=== PATIENT | male | born 1965 | race Caucasian/White ===

== ENCOUNTER 2018-06-07 08:01 | Day surgery (SDC) | payer OTHER, SELFPAY ==
--- OUTSIDE RECORDS SUMMARY | 2018-06-07 08:11 | XMS REPORT ---
:1965 Author Organization eClinicalWorks Care Team Providers Name Role Phone Jocy Solis Provider Role Unavailable Allergies, Adverse Reactions, Alerts Substance Reaction Event Type N.K.D.A. Info Not Available Non Drug Allergy Problems Problem Type Condition Code Onset Dates Condition Status Assessment Nasal pain J34.89 Active Assessment History of gallstones Z87.19 Active Assessment History of hepatitis C Z86.19 Active Problem Nasal pain J34.89 Active Problem Right upper quadrant abdominal pain R10.11 Active Problem MRSA infection A49.02 Active Assessment Right upper quadrant abdominal pain R10.11 Active Problem History of hepatitis C Z86.19 Active Problem History of gallstones Z87.19 Active Medications No Known Medications Results Name Result Date Reference Range Unit Abnormality Flag CULTURE, AEROBIC BACTERIA ----CULTURE, SEE NOTE [id number] A AEROBIC BACTERIA HEPATITIS C AB W/REFLEX TO HCV RNA QUANTITATIVE REAL TIME BY PCR ----HEPATITIS C REACTIVE [id number] NON-REACTIVE A ANTIBODY ----SIGNAL TO 24.40 [id number] <1.00 H CUT-OFF COMPREHENSIVE METABOLIC PANEL(CMP) ----ALBUMIN/GLOBULI 1.5 [id number] 1.0-2.5 (calc) N N RATIO ----GLOBULIN 2.9 [id number] 1.9-3.7 g/dL N (calc) ----ALKALINE 75 [id number] 40-115 U/L N PHOSPHATASE ----BILIRUBIN, 0.4 [id number] 0.2-1.2 mg/dL N TOTAL ----CHLORIDE 104 [id number] 98-110 mmol/L N ----ALT 15 [id number] 9-46 U/L N ----POTASSIUM 4.4 [id number] 3.5-5.3 mmol/L N ----AST 16 [id number] 10-35 U/L N ----SODIUM 139 [id number] 135-146 mmol/L N ----BUN/CREATININE NOT APPLICABLE [id number] 6-22 (calc) RATIO ----eGFR 105 [id number] > OR=60 mL/min/1.7 N [facility] 3m2 ----CALCIUM 10.3 20180510 8.6-10.3 mg/dL N ----CARBON DIOXIDE 27 [id number] 20-32 mmol/L N ----ALBUMIN 4.4 [id number] 3.6-5.1 g/dL N ----PROTEIN, TOTAL 7.3 20180510 6.1-8.1 g/dL N ----GLUCOSE 110 20180510 65-99 mg/dL H ----UREA NITROGEN 22 20180510 7-25 mg/dL N (BUN) ----CREATININE 0.95 20180510 0.70-1.33 mg/dL N ----eGFR NON-AFR. 91 20180510 > OR=60 mL/min/1.7 N [place] [address] CULTURE, ANAEROBIC BACTERIA W/GRAM STAIN Summary Purpose eClinicalWorks Submission
--- OUTSIDE RECORDS SUMMARY | 2018-06-07 08:11 | XMS REPORT ---
:1965 Author Organization eClinicalWorks Care Team Providers Name Role Phone Jocy Solis Provider Role Unavailable Allergies No Known Allergies Problems Problem Type Condition Code Onset Dates Condition Status Assessment MRSA infection A49.02 Active Assessment Blood glucose elevated R73.9 Active Problem MRSA infection A49.02 Active Problem Nasal pain J34.89 Active Problem Calculus of gallbladder with chronic K80.10 Active cholecystitis without obstruction Problem Right upper quadrant abdominal pain R10.11 Active Problem History of hepatitis C Z86.19 Active Problem History of gallstones Z87.19 Active Medications Medication Code System Code Instructions Start Date End Date Status Dosage Bactrim DS [facility] 89366417839 800-160 MG Orally May 14, May 24, Active 1 tablet Twice a day 2018 2018 Results No Known Results Summary Purpose eClinicalWorks Submission
--- OUTSIDE RECORDS SUMMARY | 2018-06-07 08:11 | XMS REPORT ---
:1965 Author Organization eClinicalWorks Care Team Providers Name Role Phone Irma Jocy Provider Role Unavailable Allergies No Known Allergies Problems Problem Type Condition Code Onset Dates Condition Status Problem MRSA infection A49.02 Active Problem Nasal pain J34.89 Active Problem Calculus of gallbladder with chronic K80.10 Active cholecystitis without obstruction Problem Right upper quadrant abdominal pain R10.11 Active Problem History of hepatitis C Z86.19 Active Problem History of gallstones Z87.19 Active Medications No Known Medications Results No Known Results Summary Purpose eClinicalWorks Submission
[2018-06-07] MEDS ORDERED: Ringers Lactate 1,000 ML IV ONE ×2 (08:33→10:57)
[2018-06-07] MEDS ORDERED: BUPIVACA 0.25%/EPI 0.0005% MDV 50 ML VIAL ONE (08:39)
[2018-06-07] MEDS ORDERED: CEFOXITIN/SWI 1gm 1 GM/10 ML SYR ONE (09:13)
[2018-06-07] MEDS ORDERED: MIDAZOLAM HCL 2 MG/2 ML INJ ONE (09:18)
[2018-06-07] MEDS ORDERED: LIDOCAINE 1% MPF 2 ML AMPULE ONE (09:21)
[2018-06-07] MEDS ORDERED: NEOSTIGMINE 1 MG/ML -10 ML VIAL ONE (09:21)
[2018-06-07] MEDS ORDERED: PROPOFOL 200 MG/20 ML VIAL IV ONE (09:21)
[2018-06-07] MEDS ORDERED: GLYCOPYRROLATE 0.2 MG/ML SYR ONE (09:21)
[2018-06-07] MEDS ORDERED: ROCURONIUM 50 MG/5 ML VIAL IV ONE (09:21)
[2018-06-07] MEDS ORDERED: FENTANYL CITR 100 MCG/2 ML ONE ×2 (09:21→09:37)
[2018-06-07] MEDS ORDERED: ONDANSETRON 4 MG/2 ML VIAL ONE (09:21)
--- NOTE | 2018-06-07 10:23 | P.OP ---
Preoperative diagnosis: Calculous Cholecystitis Postoperative diagnosis: Calculous Cholecystitis Primary procedure: Laparoscopic Cholecystectomy Anesthesia: GETA + Local Estimated blood loss: <5cc Specimen: Gallbladder Findings: Short cystic duct, impacted gallstone in neck of gallbladder Complications: None Transferred to: Recovery Room Condition: Good
[2018-06-07] MEDS: MEPERIDINE HCL 50 MG/ML AMP ONE ×4 (10:35→11:10)
[2018-06-07] MEDS ORDERED: HYDROCODONE/APAP 5/325 MG TAB ONE (12:48)
--- NOTE | 2018-06-07 21:46 | OP ---
Date of Procedure: 06/07/2018 Surgeon: Terrance Monterroso MD, Preoperative Diagnosis: Calculous cholecystitis. Postoperative Diagnosis: Calculous cholecystitis. Procedure Performed: Laparoscopic cholecystectomy. Anesthesia: General endotracheal plus local with 0.25% Marcaine. Estimated Blood Loss: Less than 5 cc. Specimen: Gallbladder. Findings: 1.Short cystic duct. 2.Impacted stone in the neck of the gallbladder. 3.Thick viscous sludge within the gallbladder. Complications: None. Disposition: Transferred to recovery room in good condition. Procedure In Detail: After informed consent was obtained, the patient brought to the operating room, prepped and draped in the usual sterile fashion. After adequate anesthesia achieved, a supraumbilic al area was anesthetized with 0.25% Marcaine and sharply incised. A 5-mm trocar was introduced in th e abdomen without evidence of complication. Insufflation was obtained to 15 mmHg this time. The are a was inspected. There was no injury to vital structures upon entry to the abdomen. The epigastrium was then inspected and a similar 5 mm trocar was placed in the epigastric region under direct visual ization without evidence of complication. The umbilical trocar was then up-sized to a 12 mm direct v isualization without evidence of complication. Additional trocar chosen in the right upper quadrant. This was similarly anesthetized and a 5-mm trocar was introduced in the abdomen without evidence of complication. Patient was positioned in a gallbladder position, that is head-up right-side up posit ion. Graspers used to grasp the gallbladder. There was found to be significant stone burden on the gallbladder and a stone impacted in the neck of the gallbladder. Careful dissection using [place] r etractor and blunt dissection near the triangle of Calot showed a short cystic duct coming after the confluence of common duct which was visualized. During this, the critical view of safety was obtaine d. After completely dissecting and skeletonizing and seen only 2 structures entering the gallbladder , these identified cystic duct and cystic artery, identifying this critical view of safety. At this time, once again, after this was ensured, titanium clips were placed doubly on the proximal side and singly on the distal side of the cystic duct and cystic artery. These were both ligated using Endo S hears and the gallbladder was then removed from the hepatic fossa with electrocautery. There was min imal spillage of thick viscous bile throughout the procedure. This was captured and suctioned out, h owever, with minimal spillage. After the gallbladder was removed, the hepatic fossa was placed in th e EndoCatch bag, removed the umbilical trocar. The area was then copiously irrigated multiple times until completely clear and the area was inspected. Clips were found to be in good anatomic position. There was no additional hemostatic maneuvers required at the end of the procedure. After inspectin g the hepatic fossa, the area was copiously irrigated again and suctioned dry and inspected for one l ast time. It was found to be in good position. Patient was then positioned in the neutral position. The umbilical trocar was then removed. The umbilical trocar site was closed using a Orestes-Tate n suture passer with 0 Vicryl in interrupted fashion with good approximation of tissues. The abdomen was completely desufflated under direct visualization without evidence of complication. All remaini ng trocars were then removed and all skin incisions copiously irrigated and closed with a 4-0 Monocry l in a running fashion. Dermabond placed over top. Patient tolerated the procedure without evidence of complication, transferred to the PACU in good condition. All counts were correct at the end of t he case. RACHELLE/JACK Voice ID: [id number] Report ID: [id number]
== END 2018-06-07 13:30 | disposition home or self-care (01) ==
LOC: OR 08:01
PROVIDERS: ATTEND Surgery
PROC: 0FT44ZZ Resection of Gallbladder, Percutaneous Endoscopic Approach (ICD-10-PCS; principal; 2018-06-07 09:15)
DX: K80.10 Calculus of gallbladder with chronic cholecystitis without obstruction (principal); Z86.19 Personal history of other infectious and parasitic diseases
CPT/HCPCS: 88304; J2001; J2175; J2250; J2405; J2704; J2710; J3010

== ENCOUNTER 2019-10-28 13:20 | Emergency (ER) | payer OTHER ==
--- OUTSIDE RECORDS SUMMARY | 2019-10-28 15:04 | XMS REPORT ---
:1965 Author Organization eClinicalWorks Care Team Providers Name Role Phone Gerald Sena Provider Role Unavailable Allergies, Adverse Reactions, Alerts Substance Reaction Event Type N.K.D.A. Info Not Available Non Drug Allergy Problems Problem Type Condition Code Onset Dates Condition Statu s Problem Pain in right foot M79.671 Active Problem Pain in left shoulder M25.512 Active Problem Pain in right finger(s) M79.644 Acti ve Problem Insomnia, unspecified type G47.00 A ctive Assessment Fatty liver K76.0 Active Problem Pain of finger of left hand M79.645 Active Assessment Hyperglycemia R73.9 Active Assessment History of hepatitis C Z86.19 Activ e Problem Erectile dysfunction, unspecified N52.9 Active erectile dysfunction type Problem Fatty liver K76.0 Active Problem Pain in right shoulder M25.511 Activ e Problem Depression screening Z13.31 Active Problem Hyperglycemia R73.9 Active Problem History of gallstones Z87.19 Active Assessment Insomnia, unspecified type G47.00 A ctive Assessment Encounter for wellness examination Z00.00 Active in adult Problem Nasal pain J34.89 Active Problem MRSA infection A49.02 Active Assessment Elevated BP without diagnosis of R03.0 Active hypertension Problem History of hepatitis C Z86.19 Activ e Problem Calculus of gallbladder with K80.10 Active chronic cholecystitis without obstruction Assessment Erectile dysfunction, unspecified N52.9 Active erectile dysfunction type Problem Right upper quadrant abdominal pain R10.11 Active Problem Pain of left foot M79.672 Active Medications Medication Code Code Instructions Start End Status Dosage System Date Date Zolpidem Tartrate [facility] 58928263095 10 MG Orally Activ e 1 tablet Once a day PRN at bedtim e INSOMNIA Amitriptyline HCl [facility] 73207246421 10 MG Active TA KE 1 TABLET BY MOUTH AT BEDTIME NEEDED Sildenafil ND 45668153667 50 MG Orally July Active 1 ta blet Citrate Once a day 2019 as needed Results No Known Results Summary Purpose eClinicalWorks Submission
--- OUTSIDE RECORDS SUMMARY | 2019-10-28 15:04 | XMS REPORT | Continuity of Care Document ---
:1965 Author Organization [facility] t Address [address] [place] [address] [address] [place] [address] Care Team Providers Name Role Phone Unavailable Unavailable Unavailable Problems Condition Condition Condition Status Onset Resolution Last Treating Co mments Source Name Details Category Date Date Treatment Clinician Date Nasal pain Nasal pain Problem Active [facility] History of History of Problem Active [facility] gallstones gallstones [facility] History of History of Problem Active [facility] hepatitis hepatitis [facility] - [facility] Right Right Problem Active [facility] upper upper [facility] - quadrant quadrant [facility] abdominal abdominal l pain pain Outpati ent Clinics MRSA MRSA Problem Active [facility] infection infection [facility] Calculus Calculus Problem [facility] - gallbladde gallbladde Me moria r with r with l chronic chronic Outpati cholecysti cholecysti en t tis tis Clinics without without obstructio obstructio n n Pain in Pain in Problem Active [facility] right right [facility] finger(s) finger(s) [facility] Pain of Pain of Problem Active [facility] finger of finger of [facility] - left hand left hand [facility] Pain in Pain in Problem Active [facility] right foot right foot [facility] Pain of Pain of Problem Active [facility] left foot left foot [facility] Depression Depression Problem Active [facility] screening screening [facility] Pain in Pain in Problem Active [facility] left [facility] shoulder shoulder [facility] Pain in Pain in Problem Active [facility] right right [facility] - shoulder shoulder [facility] Hyperglyce Hyperglyce Problem Active [facility] Fatty Fatty Problem Active [facility] liver liver [facility] Insomnia, Insomnia, Diagnosis Active [facility] unspecifie unspecifie [facility] - d type d type [facility] Erectile Erectile Problem Active [facility] t dysfunctio dysfunctio [facility] - n, n, Memoria unspecifie unspecifie l d erectile d erectile Ou tpati dysfunctio dysfunctio en t n type n type Clinics Elevated Elevated Diagnosis Active [facility] BP without BP without [facility] - diagnosis diagnosis Alonzo risa of of l hypertensi hypertensi Ou tpati on on ent Clinics Hyperkalem Hyperkalem Diagnosis Active [facility] ia ia [facility]ics Mixed Mixed Diagnosis Active [facility] hyperlipid hyperlipid [facility] - emia emia [facility] Prediabete Prediabete Diagnosis Active [facility] s s [facility]ics Allergies, Adverse Reactions, Alerts This patient has no known allergies or adverse reactions. Medications Ordered Filled Start Stop Current Ordering Indication Dosage Frequency Signature Comments Components Source Medication Medication Date Date Medication? Clinician (SIG) Name Name Zolpidem Zolpidem Yes Gerald [address] Tartrate Tartrate Sena at bedtime [facility] Sildenafil Sildenafil Yes Gerald [address] [facility] [address] Citrate Citrate Sena as needed Isaac es - (PLEASE Memoria USE l [facility]) [facility] Procedures This patient has no known procedures. Encounters Start End Encounter Admission Attending Care Care Encounter Source Date/Time Date/Time Type Type Clinicians Facility Department ID 2019-10-16 2019-10-16 Outpatient Kylee Roman [id number] [facility] 15[facility]15:00 15:15:00 [facility] 2019-09-19 2019-09-19 Outpatient Kylee Roman [id number] [facility] 09:45:00 09:45:00 [facility] 2019-08-21 2019-08-21 Outpatient Kylee Roman [id number] [facility] 14:09:00 14:09:00 [facility] Medicine Medicine Outpati ent Clinics 2019-08-21 2019-08-21 [facility] [id number] [facility] 11:15:00 11:15:00 [facility] Medicine Outpati ent Clinics 2019-07-30 2019-07-30 [facility] [id number] [facility] 09:30:00 09:30:00 [facility] Medicine Outpati ent Clinics 2019-06-28 2019-06-28 [facility] [id number] 15:00:00 15:00:00 t [facility] [employer] [place] [facility] Medicine Outpati ent Clinics 2018-12-21 2018-12-21 [facility] [id number] 13:40:00 13:40:00 t [facility] Medicine Outpati ent Clinics 2018-06-26 2018-06-26 [facility] [id number] 10:15:00 10:15:00 t Specialty/U [facility] - Specialty rology [facility] /Urology Clinic l Clinic Outpati ent Clinics 2018-05-29 2018-05-29 [facility] [id number] [facility] 09:45:00 09:45:00 t Specialty/U [facility] - Specialty rology Mem[facility] /Urology Clinic l Clinic Outpati ent Clinics 2018-05-25 2018-05-25 [facility] [id number] 15:34:00 15:34:00 t [facility] Medicine Outpati ent Clinics 2018-05-14 2018-05-14 [facility] [id number] 22:12:00 22:12:00 t [facility] Medicine Outpati ent Clinics 2018-05-08 2018-05-08 [facility] [id number] 13:45:00 13:45:00 t [facility] Medicine Outpati ent Clinics Results This patient has no known results.
--- OUTSIDE RECORDS SUMMARY | 2019-10-28 15:04 | XMS REPORT ---
:1965 Author Organization eClinicalWorks Care Team Providers Name Role Phone Gerald Sena Provider Role Unavailable Allergies, Adverse Reactions, Alerts Substance Reaction Event Type N.K.D.A. Info Not Available Non Drug Allergy Problems Problem Type Condition Code Onset Dates Condition Statu s Problem Fatty liver K76.0 Active Problem Pain of left foot M79.672 Active Problem Hyperglycemia R73.9 Active Problem Pain of finger of left hand M79.645 Active Assessment History of hepatitis C Z86.19 Activ e Problem Depression screening Z13.31 Active Problem Insomnia, unspecified type G47.00 A ctive Problem Pain in right finger(s) M79.644 Acti ve Problem Pain in right foot M79.671 Active Problem Pain in right shoulder M25.511 Activ e Problem Pain in left shoulder M25.512 Active Assessment Insomnia, unspecified type G47.00 A ctive Assessment Hyperglycemia R73.9 Active Assessment Fatty liver K76.0 Active Problem Right upper quadrant abdominal pain R10.11 Active Problem Nasal pain J34.89 Active Problem History of gallstones Z87.19 Active Problem MRSA infection A49.02 Active Problem History of hepatitis C Z86.19 Activ e Problem Calculus of gallbladder with K80.10 Active chronic cholecystitis without obstruction Medications Medication Code Code Instructions Start End Status Dosage System Date Date Amitriptyline HCl [facility] 98422112496 10 MG Active TA KE 1 TABLET BY MOUTH AT BEDTIME NEEDED Zolpidem Tartrate ND 06504293396 5 MG Orally June Active 1 tablet Once a day PRN 2019 at bedti me INSOMNIA Results No Known Results Summary Purpose eClinicalWorks Submission
--- OUTSIDE RECORDS SUMMARY | 2019-10-28 15:04 | XMS REPORT ---
:1965 Author Organization eClinicalWorks Care Team Providers Name Role Phone Gerald Sena Provider Role Unavailable Allergies No Known Allergies Problems Problem Type Condition Code Onset Dates Condition Statu s Problem Pain in right foot M79.671 Active Problem Pain in left shoulder M25.512 Active Problem Pain in right finger(s) M79.644 Acti ve Problem Insomnia, unspecified type G47.00 A ctive Problem Pain of finger of left hand M79.645 Active Problem Erectile dysfunction, unspecified N52.9 Active erectile dysfunction type Problem Fatty liver K76.0 Active Problem Pain in right shoulder M25.511 Activ e Problem Depression screening Z13.31 Active Problem Hyperglycemia R73.9 Active Problem History of gallstones Z87.19 Active Assessment Encounter for screening for Z12.11 Active malignant neoplasm of colon Assessment Encounter for screening for Z12.12 Active malignant neoplasm of rectum Problem Nasal pain J34.89 Active Problem MRSA infection A49.02 Active Problem History of hepatitis C Z86.19 Activ e Problem Calculus of gallbladder with K80.10 Active chronic cholecystitis without obstruction Problem Right upper quadrant abdominal pain R10.11 Active Problem Pain of left foot M79.672 Active Medications No Known Medications Results No Known Results Summary Purpose eClinicalWorks Submission
--- OUTSIDE RECORDS SUMMARY | 2019-10-28 15:05 | XMS REPORT ---
:1965 Author Organization eClinicalWorks Care Team Providers Name Role Phone Gerald Sena Provider Role Unavailable Allergies, Adverse Reactions, Alerts Substance Reaction Event Type N.K.D.A. Info Not Available Non Drug Allergy Problems Problem Type Condition Code Onset Dates Condition Statu s Assessment Elevated BP without diagnosis of R03.0 Active hypertension Assessment History of hepatitis C Z86.19 Activ e Problem Pain of left foot M79.672 Active Assessment Hyperkalemia E87.5 Active Problem Pain in right foot M79.671 Active Assessment Erectile dysfunction, unspecified N52.9 Active erectile dysfunction type Problem Pain in right finger(s) M79.644 Acti ve Problem Pain in right shoulder M25.511 Activ e Problem Pain in left shoulder M25.512 Active Problem Erectile dysfunction, unspecified N52.9 Active erectile dysfunction type Problem Insomnia, unspecified type G47.00 A ctive Assessment Mixed hyperlipidemia E78.2 Active Assessment Fatty liver K76.0 Active Problem Mixed hyperlipidemia E78.2 Active Assessment Prediabetes R73.03 Active Problem Hyperglycemia R73.9 Active Problem Fatty liver K76.0 Active Problem Pain of finger of left hand M79.645 Active Problem Depression screening Z13.31 Active Problem Right upper quadrant abdominal pain R10.11 Active Problem History of gallstones Z87.19 Active Assessment Insomnia, unspecified type G47.00 A ctive Problem MRSA infection A49.02 Active Problem Calculus of gallbladder with K80.10 Active chronic cholecystitis without obstruction Problem History of hepatitis C Z86.19 Activ e Problem Nasal pain J34.89 Active Medications Medication Code Code Instructions Start End Status Dosage System Date Date Zolpidem [facility] 95981099159 10 MG Orally Active 1 tabl et Tartrate Once a day PRN at bedti me INSOMNIA Sildenafil ND 82655877165 100 MG Orally Active 1 t ablet Citrate Once a day as needed Results No Known Results Summary Purpose eClinicalWorks Submission
--- OUTSIDE RECORDS SUMMARY | 2019-10-28 15:05 | XMS REPORT ---
[...] Insomnia, unspecified type G47.00 A ctive Assessment Insomnia, unspecified type G47.00 A ctive Assessment Fatty liver K76.0 Active Problem Mixed hyperlipidemia E78.2 Active Assessment Prediabetes R73.03 Active Problem Hyperglycemia R73.9 Active Problem Fatty liver K76.0 Active Problem Pain of finger of left hand M79.645 Active Problem Depression screening Z13.31 Active Problem Right upper quadrant abdominal pain R10.11 Active Problem History of gallstones Z87.19 Active Assessment Mixed hyperlipidemia E78.2 Active Problem MRSA infection A49.02 Active Problem Calculus of gallbladder with K80.10 Active chronic cholecystitis without obstruction Problem History of hepatitis C Z86.19 Activ e Problem Nasal pain J34.89 Active Medications Medication Code Code Instructions Start End Status Dosage System Date Date Sildenafil [facility] 18500841960 100 MG Orally Active 1 t ablet Citrate Once a day as needed (PLEASE USE GOODRx) Zolpidem [facility] 73597597095 10 MG Orally Active 1 tabl et Tartrate Once a day PRN at bedti me INSOMNIA Results No Known Results Summary Purpose eClinicalWorks Submission
[2019-10-28] MEDS ORDERED: NA CHLORIDE 0.9% 1,000 ML ONE (15:20)
[2019-10-28 15:44] LABS: Basophils % 0.8 % (0-1.3); Hematocrit 44.5 % (39.6-49.0); Lymphocytes % 23.9 % (15.3-44.8); MPV 8.9 fL (7.6-11.3); RBC Red Blood Cell Count 4.87 M/uL (4.33-5.43)
[2019-10-28 16:02] LABS: ALT/SGPT 28 U/L (12-78); AST/SGOT 16 U/L (15-37); Albumin 3.9 g/dL (3.4-5.0); Alkaline Phosphatase 71 U/L (45-117); BUN Blood Urea Nitrogen 15 mg/dL (7-18); Bicarbonate 27 mmol/L (21-32); Bilirubin Direct < 0.1 mg/dL (0-0.2); Bilirubin Total 0.3 mg/dL (0.2-1.0); Glucose Level 95 mg/dL (74-106); Magnesium 2.3 mg/dL (1.8-2.4); NT PRO-BNP 105 pg/mL (<125); Protein, Total 7.3 g/dL (6.4-8.2); Sodium Level 142 mmol/L (136-145); Troponin (Emerg Dept Use Only) < 0.02 ng/mL (0.0-0.045)
--- NOTE | 2019-10-28 16:17 | RAD REPORT ---
EXAM DESCRIPTION: RAD - Chest Single View - 10/28/2019 4:04 pm CLINICAL HISTORY: Chest pain;Cough COMPARISON: None TECHNIQUE: AP portable chest image was obtained 10/28/2019 4:04 pm . FINDINGS: No focal mass or consolidation. Interstitial markings are prominent. This is believed to b e baseline. Calcified plaquing changes are present. No failure or volume overload suspected. Heart an d vasculature are normal. No measurable pleural effusion and no pneumothorax. No acute bony abnormali ty seen. No acute aortic findings suspected. IMPRESSION: No mass, consolidation or significant failure/ volume overload. Interstitial markings are prominent and mild edema or infiltrate superimposed on chronic disease not excluded.
--- NOTE | 2019-10-28 17:07 | RAD REPORT ---
EXAM DESCRIPTION: CT - Head Brain Wo Cont - 10/28/2019 4:56 pm CLINICAL HISTORY: HEADACHE COMPARISON: No comparisons TECHNIQUE: Axial 5 mm thick images of the head were obtained without IV contrast. All CT scans are performed using dose optimization technique as appropriate and may include automated exposure control or mA/KV adjustment according to patient size. FINDINGS: No intracranial hemorrhage, mass, edema or shift of mid-line structures. No acute infarcti on changes seen. No abnormal extra-axial fluid collections. Ventricles are normal. Mastoid air cells and visualized portions of the paranasal sinuses are clear. No acute bony findings. IMPRESSION: Negative non-contrast CT head examination.
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
[2019-10-28 18:11] VITALS: BP 135/83; TEMP 98.2; O2SAT 98
== END 2019-10-28 18:07 | disposition home or self-care (01) ==
LOC: ER 13:20
DX: J06.9 Acute upper respiratory infection, unspecified (principal); Z20.828 Contact with and (suspected) exposure to other viral communicable diseases; R19.7 Diarrhea, unspecified
CPT/HCPCS: 93005; 87040 ×2; 87070; 85025; 80048; 36415; 83735; 80076; 87081; 84484; 83690; 83880; 87804 ×2; 70450; 71045; 99284; U0001; J7030

== ENCOUNTER 2021-01-18 18:53 | Emergency (ER) | payer OTHER, SELFPAY ==
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
[2021-01-18] MEDS ORDERED: IBUPROFEN 200 MG TAB PO ONE (22:12)
[2021-01-18] MEDS ORDERED: IBUPROFEN 400 MG TAB ONE (22:12)
[2021-01-18] MEDS ORDERED: DIAZEPAM 5 MG TABLET ONE (22:12)
[2021-01-18] MEDS ORDERED: HYDROCODONE/APAP 10/325 TAB ONE (22:21)
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
[2021-01-19 01:24] VITALS: BP 162/92; TEMP 97.6; O2SAT 99
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
== END 2021-01-18 23:58 | disposition home or self-care (01) ==
LOC: ER 18:53
DX: S16.1XXA Strain of muscle, fascia and tendon at neck level, initial encounter (principal); M25.512 Pain in left shoulder; V49.40XA Driver injured in collision with unspecified motor vehicles in traffic accident, initial encounter
CPT/HCPCS: 71045; 72125; 73200; 99284

== ENCOUNTER 2021-10-08 16:48 | Emergency (ER) | payer OTHER ==
--- OUTSIDE RECORDS SUMMARY | 2021-10-08 16:51 | XMS REPORT | Continuity of Care Document ---
:1965 Author Organization [facility] t Address [address] [place] [address] [address]. [address] [place] [address] Care Team Providers Name Role Phone Miya Sena Attending Clinician Unavailable Problems This patient has no known problems. Allergies, Adverse Reactions, Alerts Allergy Allergy Status Severity Reaction(s) Onset Inactive Treating Comm ents Source Name Type Date Date Clinician NO KNOWN Drug Active Univers ALLERGIE Class ity of S [facility] Medications Ordered Filled Start Stop Current Ordering Indication Dosage Frequency Signature Comments Components Source Medication Medication Date Date Medication? Clinician (SIG) Name Name Zolpidem Zolpidem Yes Gerald 1 tablet C ommon Tartrate Tartrate Sena at bedtime [facility] Sildenafil Sildenafil Yes Gerald 1 tablet Common Citrate Citrate Sena as needed Spi rit (PLEASE - [facility] Sildenafil Sildenafil Yes Gerald 1 tablet Common Citrate Citrate Sena as needed Spi rit (PLEASE - [facility] Procedures This patient has no known procedures. Encounters Start End Encounter Admission Attending Care Care Encounter Source Date/Time Date/Time Type Type Clinicians Facility Department ID 2021-05-26 Outpatient Sena, [facility] [id number] Common 13:36:10 Gerald [id number] [facility] 2021-05-26 Outpatient Sena, [facility] [id number] Common 13:02:13 Gerald [id number] [facility] 2021-05-26 Outpatient Sena, [facility] [id number] Common 13:01:03 Gerald 50759 [facility] 2021-05-26 Outpatient Sena, [facility] [id number] Common 12:58:25 Gerald [id number] [facility] 2021-05-26 Outpatient Sena, [facility] [id number] Common 12:33:50 Gerald [id number] [facility] 2021-05-26 Outpatient Sena, [facility] [id number] Common 12:29:15 Gerald [id number] [facility] 2021-05-26 Outpatient Sena, [facility] [id number] Common 12:28:04 Gerald [id number] [facility] 2021-05-26 Outpatient Sena, [facility] [id number] Common 12:10:41 Geradl [id number] [facility] 2021-05-26 Outpatient Sena, [facility] [id number] Common 11:26:53 Gerald [id number] [facility] 2021-05-26 Outpatient Sena, [facility] [id number] Common 11:18:38 Gerald [id number] [facility] 2021-05-26 Outpatient Sena, [facility] [id number] Common 11:16:17 Gerald [id number] [facility] 2021-03-10 2021-03-10 ambulatory [facility] [id number] Common 00:00:00 00:00:00 [facility] 2020-12-08 2020-12-08 Outpatient [facility] [id number] Common 00:00:00 00:00:00 [facility] 2020-09-07 2020-09-07 Outpatient [facility] [id number] Common 00:00:00 00:00:00 [facility] 2020-06-26 2020-06-26 Outpatient [facility] [id number] Common 00:00:00 00:00:00 [facility] 2020-06-25 2020-06-25 Outpatient [facility] [id number] Common 00:00:00 00:00:00 [facility] 2020-06-08 2020-06-08 Outpatient [facility] [id number] Common 00:00:00 00:00:00 [facility] 2020-05-27 2020-05-27 Outpatient [facility] [id number] Common 00:00:00 00:00:00 [facility] 2020-04-06 2020-04-06 Outpatient [facility] [id number] Common 00:00:00 00:00:00 [facility] 2020-02-05 2020-02-05 Outpatient [facility] [id number] Common 00:00:00 00:00:00 [facility] 2020-01-23 2020-01-23 Outpatient [facility] [id number] Common 00:00:00 00:00:00 [facility] 2020-01-07 2020-01-07 [id number] Common 10:10:00 10:10:[address] [facility] 2019-12-23 2019-12-23 [facility] [id number] Common 08:40:00 08:40:[address] [facility] 2019-12-13 2019-12-13 [facility] [id number] Common 13:11:00 13:11:[address] [facility] 2019-10-16 2019-10-16 [facility] [id number] Common 15:15:00 15:15:[address] [facility] 2019-09-20 2019-09-20 Outpatient R [facility] [id number] Univers 15:45:00 15:45:00 ity [facility] 2019-09-19 2019-09-19 [facility] [id number] Common 09:45:00 09:45:[address] [facility] 2019-08-21 2019-08-21 [facility] [id number] Common 14:09:00 14:09:[address] [facility] 2019-08-21 2019-08-21 [facility] [id number] Common 11:15:00 11:15:[address] [facility] 2019-07-30 2019-07-30 [facility] [id number] Common 09:30:00 09:30:[address] [facility] 2019-06-28 2019-06-28 [facility] [id number] Common 15:00:00 15:00:[address] [facility] 2018-12-21 2018-12-21 [facility] [id number] Common 13:40:00 13:40:[address] [facility] 2018-06-26 2018-06-26 [facility] [id number] Common 10:15:00 10:15:00 t Specialty/U Sp felicia Specialty rology - [facility] 2018-05-29 2018-05-29 [facility] [id number] Common 09:45:00 09:45:00 t Specialty/U Sp felicia Specialty rology - [facility] /Urology Clinic [facility] 2018-05-25 2018-05-25 [facility] [id number] Common 15:34:00 15:34:[address] [facility] 2018-05-14 2018-05-14 [facility] [id number] Common 22:12:00 22:12:[address] [facility] 2018-05-08 2018-05-08 [facility] [id number] Common 13:45:00 13:45:[address] [facility] Results This patient has no known results.
[2021-10-08] MEDS ORDERED: ONDANSETRON 4 MG (ODT) TAB ONE (17:18)
[2021-10-08 18:39] LABS: Absolute Lymphocytes (CBC) 2.5 K/uL (0.7-4.9); Hematocrit 44.1 % (39.6-49.0); Lymphocytes % 24.2 % (15.3-44.8); MPV 8.4 fL (7.6-11.3)
[2021-10-08 18:58] LABS: Albumin 3.8 g/dL (3.4-5.0); Bilirubin Total 0.3 mg/dL (0.2-1.0); Potassium 3.9 mmol/L (3.5-5.1); Protein, Total 7.1 g/dL (6.4-8.2)
[2021-10-08] MEDS ORDERED: NA CHLORIDE 0.9% 1,000 ML ONE (19:05)
[2021-10-08] MEDS ORDERED: LIDOCAINE 1% 20 ML MDV ONE (19:52)
[2021-10-08] MEDS ORDERED: KETOROLAC 30 MG/ML INJ ONE (20:17)
--- NOTE | 2021-10-08 20:21 | ER ---
Nurse's Notes [facility] Name: Terrence Wilson Age: 56 yrs Sex: Male : 1965 Arrival Date: 10/08/2021 Time: 16:52 Bed 5 Private MD: Diagnosis: Cutaneous abscess of back [any part, except buttock] Presentation: 10/08 17:07 Chief complaint: Patient states: Last couple of days I have not been feeling well. ld1 Today I started feeling worse. Abscess to right upper back/shoulder. C/O nausea. Coronavirus screen: At this time, the client does not indicate any symptoms associated with coronavirus-19. Ebola Screen: No symptoms or risks identified at this time. Initial Sepsis Screen: Does the patient meet any 2 criteria? No. Patient's initial sepsis screen is negative. Does the patient have a suspected source of infection? No. Patient's initial sepsis screen is negative. Risk Assessment: Do you want to hurt yourself or someone else? Patient reports no desire to harm self or others. Onset of symptoms was October 08, 2021. 17:07 Method Of Arrival: Ambulatory ld1 17:07 Acuity: WENDI 3 ld1 Triage Assessment: 17:09 General: Appears in no apparent distress. comfortable, Behavior is calm, cooperative, ld1 appropriate for age. Pain: Complains of pain in right trapezius Pain does not radiate. Pain currently is 7 out of 10 on a pain scale. EENT: No signs and/or symptoms were reported regarding the EENT system. Neuro: Level of Consciousness is awake, alert, obeys commands, Oriented to person, place, time, situation. Cardiovascular: Capillary refill < 3 seconds Patient's skin is warm and dry. Respiratory: Airway is patent Respiratory effort is even, unlabored. GI: Abdomen is flat, non-distended, Reports nausea. : No signs and/or symptoms were reported regarding the genitourinary system. Derm: No signs and/or symptoms reported regarding the dermatologic system. Musculoskeletal: No signs and/or symptoms reported regarding the musculoskeletal system. Historical: - Allergies: 17:07 No Known Allergies; ld1 - Home Meds: 17:07 None [Active]; ld1 - PMHx: 17:07 None; ld1 - PSHx: 17:07 Cholecystectomy; ld1 - Immunization history:: Adult Immunizations up to date, Client reports receiving the 2nd dose of the Covid vaccine. - Social history:: Smoking status: Patient denies any tobacco usage or history of. Patient/guardian denies using alcohol. Screenin:32 Abuse screen: Denies threats or abuse. Denies injuries from another. Nutritional chiang screening: No deficits noted. Tuberculosis screening: No symptoms or risk factors identified. Fall Risk None identified. Assessment: 18:32 General: Appears in no apparent distress. Behavior is calm, cooperative. Pain: chiang Complains of pain in neck, back and abdomen. Cardiovascular: Reports nausea. GI: Reports nausea. Musculoskeletal: Reports pain in back. 20:45 GI: No deficits noted. Abdomen is flat, non-distended. Derm: Abscess located on right sm5 trapezius. Vital Signs: 17:07 BP 171 / 95; Pulse 74; Resp 18; Temp 98.8(TE); Pulse Ox 98% on R/A; Weight 74.84 kg; ld1 Height 5 ft. 7 in. (170.18 cm); Pain 7/10; 19:45 BP 166 / 86; Pulse 56; Resp 17; Pulse Ox 100% on R/A; sm5 17:07 Body Mass Index 25.84 (74.84 kg, 170.18 cm) ld1 ED Course: 16:52 Patient arrived in ED. as 17:09 Triage completed. ld1 17:09 Arm band placed on right wrist. ld1 17:10 Amarilys Dudley FNP is [facility]. 7 17:10 Duran Moe MD is Attending Physician. [facility] 18:32 Maggi Vasquez, MICHELET is Primary Nurse. chiang 18:32 Patient has correct armband on for positive identification. Bed in low position. chiang 18:32 No provider procedures requiring assistance completed. chiang 18:35 Initial lab(s) drawn, by me, sent to lab. Flu and/or RSV swab sent to lab. Inserted jw7 saline lock: 20 gauge in right forearm, using aseptic technique. Blood collected. 18:36 Warm blanket given. jw7 18:36 CBC with Diff Sent. jw7 18:36 CMP Sent. jw7 18:36 Lipase Sent. jw7 18:36 Flu Sent. jw7 20:42 Wound care: to abcess located on back and right trapezius was dressed with 4X4s, sm5 Patient tolerated well. 20:46 IV discontinued, intact, bleeding controlled, No redness/swelling at site. Pressure 5 dressing applied. Administered Medications: 17:12 Drug: Ondansetron 4 mg Route: PO; ld1 18:38 Follow up: Response: No adverse reaction chiang 18:38 Drug: NS 0.9% 1000 ml Route: IV; Rate: 1 bolus; Site: right forearm; chiang 19:54 Drug: Lidocaine (1 %) 20 ml {Note: administered by Amarilys Dudley NP.} Volume: 20 ml; sm5 Route: Infiltration; 20:34 Follow up: Response: No adverse reaction 5 20:14 Drug: Ketorolac 30 mg Route: IVP; Site: right forearm; sm5 20:34 Follow up: Response: No adverse reaction [facility] Medication: 18:32 VIS not applicable for this client. chiang Outcome: 20:21 Discharge ordered by [facility] 20:46 Discharged to home ambulatory. [facility] 20:46 Condition: stable 20:46 Discharge instructions given to patient, Instructed on discharge instructions, follow up and referral plans. Demonstrated understanding of instructions, follow-up care, medications, Prescriptions given X 3. 20:46 [address] the ED[address] [facility] Signatures: Suzette Simpson Lauren RN MICHELET 1 Sary Harrison RN RN 5 Maggi Vasquez RN RN ha Waits, Jodi jw7 Hadash, Jennifer, FNP [facility]
--- NOTE | 2021-10-08 20:22 | EDPHYS ---
Physician Documentation [facility] Name: Terrence Wilson Age: 56 yrs Sex: Male : 1965 Arrival Date: 10/08/2021 Time: 16:52 Bed 5 Private MD: ED Physician Duran Moe HPI: 10/08 17:10 This 56 yrs old Male presents to ER via Ambulatory with complaints of Nausea, Weakness, jh7 Neck and Upper Back Pain, Headache. 17:10 The patient presents to the emergency department with nausea, that is moderate. jh7 17:10 Onset: The symptoms/episode began/occurred 3 day(s) ago. jh7 17:10 Patient reports nausea, and right upper back pain worsening over the past 3 days. jh7 Reports that he just feels terrible. Also complains of an abscess on his right upper back that is tender to the touch. No prior medical problems.. Historical: - Allergies: 17:07 No Known Allergies; ld1 - Home Meds: 17:07 None [Active]; ld1 - PMHx: 17:07 None; ld1 - PSHx: 17:07 Cholecystectomy; ld1 - Immunization history:: Adult Immunizations up to date, Client reports receiving the 2nd dose of the Covid vaccine. - Social history:: Smoking status: Patient denies any tobacco usage or history of. Patient/guardian denies using alcohol. ROS: 17:10 Eyes: Negative for injury, pain, redness, and discharge, ENT: Negative for injury, jh7 pain, and discharge, Neck: Negative for injury, pain, and swelling, Cardiovascular: Negative for chest pain, palpitations, and edema, Respiratory: Negative for shortness of breath, cough, wheezing, and pleuritic chest pain. 17:10 Back: Negative for injury and pain, Neuro: Negative for headache, weakness, numbness, tingling, and seizure. 17:10 Constitutional: Positive for body aches, malaise, Negative for chills, fever. 17:10 Abdomen/GI: Positive for nausea, Negative for vomiting, diarrhea. 17:10 Skin: Positive for abscess. 17:10 All other systems are negative. Exam: 17:10 Eyes: Pupils equal round and reactive to light, extra-ocular motions intact. Lids and jh7 lashes normal. Conjunctiva and sclera are non-icteric and not injected. Cornea within normal limits. Periorbital areas with no swelling, redness, or edema. ENT: Nares patent. No nasal discharge, no septal abnormalities noted. Tympanic membranes are normal and external auditory canals are clear. Oropharynx with no redness, swelling, or masses, exudates, or evidence of obstruction, uvula midline. Mucous membranes moist. Neck: Trachea midline, no thyromegaly or masses palpated, and no cervical lymphadenopathy. Supple, full range of motion without nuchal rigidity, or vertebral point tenderness. No Meningismus. Cardiovascular: Regular rate and rhythm with a normal S1 and S2. No gallops, murmurs, or rubs. Normal PMI, no JVD. No pulse deficits. Respiratory: Lungs have equal breath sounds bilaterally, clear to auscultation and percussion. No rales, rhonchi or wheezes noted. No increased work of breathing, no retractions or nasal flaring. Abdomen/GI: Soft, non-tender, with normal bowel sounds. No distension or tympany. No guarding or rebound. No evidence of tenderness throughout. Back: No spinal tenderness. No costovertebral tenderness. Full range of motion. Neuro: Awake and alert, GCS 15, oriented to person, place, time, and situation. Motor strength 5/5 in all extremities. Sensory grossly intact. Normal gait. 17:10 Constitutional: The patient appears uncomfortable. 17:10 Skin: abscess, of the right trapezius, with fluctuance, with induration, 2 cm. Vital Signs: 17:07 BP 171 / 95; Pulse 74; Resp 18; Temp 98.8(TE); Pulse Ox 98% on R/A; Weight 74.84 kg; ld1 Height 5 ft. 7 in. (170.18 cm); Pain 7/10; 19:45 BP 166 / 86; Pulse 56; Resp 17; Pulse Ox 100% on R/A; sm5 17:07 Body Mass Index 25.84 (74.84 kg, 170.18 cm) ld1 Procedures: 19:45 I \T\ D: Incision and drainage was performed for an abscess of the right trapezius jh7 Prepped with Betadine, Anesthetized with 5 ml's 1% Lidocaine. Incised with #11 blade. Drained large amount purulent fluid. Loculations removed. Packed with iodoform gauze, Dressing: sterile 4x4 gauze, the patient tolerated the procedure well, Large amount of thick white drainage expelled from abscessed cyst. MDM: 18:21 Patient medically screened. javier 19:45 Differential diagnosis: Abscessed cyst. Data reviewed: vital signs, nurses notes, lab [facility] test result(s). Data interpreted: Pulse oximetry: is 100 %. Interpretation: normal. Counseling: I had a detailed discussion with the patient and/or guardian regarding: the historical points, exam findings, and any diagnostic results supporting the discharge/admit diagnosis, the need for outpatient follow up, a general surgeon, to return to the emergency department if symptoms worsen or persist or if there are any questions or concerns that arise at home. Response to treatment: the patient's symptoms have mildly improved after treatment. ED course: I\T\D performed. Informed the patient that he would need to follow-up with a general surgeon to have the cyst completely removed. Prescribed Bactrim and mupirocin. He remained stable throughout his ER visit and understood the plan of care. Advised to return to the ER if he develops any new concerning symptoms.. 10/08 17:15 Order name: CBC with Diff; Complete Time: 19:33 [facility] 10/08 17:15 Order name: CMP; Complete Time: 19:33 [facility] 10/08 17:15 Order name: Lipase; Complete Time: 19:33 [facility] 10/08 17:15 Order name: Flu; Complete Time: 19:33 [facility] 10/08 17:15 Order name: IV Saline Lock; Complete Time: 18:35 [facility] 10/08 17:15 Order name: Labs collected and sent; Complete Time: 18:36 [facility] 10/08 17:15 Order name: I\T\D Setup; Complete Time: 18:38 [facility] 10/08 17:15 Order name: EKG; Complete Time: 17:16 jh7 Administered Medications: 17:12 Drug: Ondansetron 4 mg Route: PO; ld1 18:38 Follow up: Response: No adverse reaction chiang 18:38 Drug: NS 0.9% 1000 ml Route: IV; Rate: 1 bolus; Site: right forearm; chiang 19:54 Drug: Lidocaine (1 %) 20 ml {Note: administered by Amarilys Hadash, RECORDS OFFICER.} Volume: 20 ml; sm5 Route: Infiltration; 20:34 Follow up: Response: No adverse reaction 5 20:14 Drug: Ketorolac 30 mg Route: IVP; Site: right forearm; sm5 20:34 Follow up: Response: No adverse reaction 5 Disposition Summary: 10/08/21 20:21 Discharge Ordered Location: Home [facility] Problem: new [facility] Symptoms: have improved [facility] Condition: Stable [facility] Diagnosis - Cutaneous abscess of back [any part, except buttock] [facility] Followup: [facility] - With: Private Physician - When: 2 - 3 days - Reason: Recheck today's complaints Discharge Instructions: - Discharge Summary Sheet [facility] - Skin Abscess [facility] Forms: - Medication Reconciliation Form [facility] - Thank You Letter [facility] - Antibiotic Education [facility] Prescriptions: - mupirocin 2 % Topical ointment - apply 1 application by TOPICAL route 3 times per day; 1 tube; Refills: 0, 7 Product Selection Permitted - Naprosyn 500 mg Oral Tablet - take 1 tablet by ORAL route 2 times per day take with food; 30 tablet; Refills: [facility] 0, Product Selection Permitted - Bactrim DS 800-160 mg Oral Tablet - take 1 tablet by ORAL route every 12 hours for 7 days; 14 tablet; Refills: 0, 7 Product Selection Permitted Signatures: Dispatcher [employer] Duran Alvares MD MD cha Dibbern, Lauren, RN RN ld1 Sary Harrison RN RN sm5 Maggi Vasquez RN RN ha Hadash, Jennifer, FNP [place] [id number]
[2021-10-08 20:52] VITALS: TEMP 98.8
[2021-10-08 20:55] VITALS: BP 166/86; O2SAT 100
== END 2021-10-08 20:46 | disposition home or self-care (01) ==
LOC: ER 16:48
PROC: 0H96XZZ Drainage of Back Skin, External Approach (ICD-10-PCS; principal; 2021-10-08)
DX: L02.212 Cutaneous abscess of back [any part, except buttock and flank] (principal); R11.0 Nausea; R53.1 Weakness; M54.2 Cervicalgia; R51.9 Headache, unspecified
CPT/HCPCS: 10060; 85025; 36415; 83690; 80053; 87804 ×2; 96374; 99284; J7030

== ENCOUNTER 2023-11-02 13:35 | Emergency (ER) | payer OTHER ==
[2023-11-02] MEDS ORDERED: ONDANSETRON 4 MG/2 ML VIAL ONE (14:11)
[2023-11-02] MEDS ORDERED: METOCLOPRAMIDE 10 MG/2mL INJ ONE (14:11)
[2023-11-02] MEDS ORDERED: FAMOTIDINE 20 MG/2 ML VIAL IV ONE (14:12)
[2023-11-02] MEDS ORDERED: NA CHLORIDE 0.9% 1,000 ML ONE (14:12)
[2023-11-02 15:15] LABS: Specific Gravity 1.017 (1.005-1.030); Urine Bilirubin NEGATIVE (Negative); Urine Blood Negative (Negative); Urine Clarity Clear (Clear); Urine Color Colorless (Yellow); Urine Glucose NEGATIVE (Negative); Urine Ketones NEGATIVE (Negative); Urine Microscopic Reflex YN NO UMIC; Urine Nitrite NEGATIVE (Negative); Urine Protein NEGATIVE (Negative); Urine Urobilinogen Normal (Normal)
[2023-11-02 15:16] LABS: Absolute Basophils 0.1 K/uL (0-0.5); Absolute Eosinophils 0.1 K/uL (0-0.5); Absolute Lymphocytes (CBC) 1.6 K/uL (0.7-4.9); Absolute Monocytes 0.7 K/uL (0.1-1.3); Absolute Neutrophil 6.7 K/uL (1.8-8.0); Basophils % 0.6 % (0-1.3); Eosinophils % 0.8 % (0-4.4); Hematocrit 43.2 % (39.6-49.0); Hemoglobin 14.2 g/dL (13.6-17.9); Lymphocytes % 17.7 % (15.3-44.8); MCH 31.3 pg (27.0-35.0); MCHC 32.8 g/dL (32.0-36.0); MCV 95.4 fL (80-100); MPV 8.8 fL (7.6-11.3); Monocytes % 7.5 % (3.3-12.3); Neutrophils % 73.4 % (41.7-73.7); Platelets 203 thou/uL (152-406); RBC Red Blood Cell Count 4.53 M/uL (4.33-5.43); Red Cell Distribution Width 13.5 % (12.1-15.2)
[2023-11-02 15:27] LABS: PT Prothrombin Time 10.3 SECONDS (9.4-12.5); Protime INR 0.93
[2023-11-02 15:39] LABS: ALT/SGPT 23 U/L (16-61); AST/SGOT 12 U/L (15-37); Albumin 3.8 g/dL (3.4-5.0); Albumin/Globulin Ratio 1.2 (1.1-1.8); Alkaline Phosphatase 82 U/L (45-117); Anion Gap 5.9 mEq/L (5.0-15.0); BUN Blood Urea Nitrogen 20 mg/dL (7-18); Bicarbonate 29 mEq/L (21-32); Bilirubin Total 0.5 mg/dL (0.2-1.0); Globulin 3.2 g/dL (2.3-3.5); Glomerular Filtration Rate 88 ml/min (=/>90); Glucose Level 104 mg/dL (74-106); Lipase 17 U/L (13-75); Potassium 3.9 mEq/L (3.5-5.1); Sodium Level 139 mEq/L (136-145); Troponin High Sensitivity 7.3 pg/mL (<58.9)
[2023-11-02 15:42] LABS: Bilirubin Direct < 0.2 mg/dL (0-0.2); Bilirubin Indirect, Calculated 0.3 mg/dL (0.2-0.8)
--- NOTE | 2023-11-02 15:49 | RAD REPORT ---
EXAM DESCRIPTION: RAD - Chest Single View - 11/02/2023 3:28 pm CLINICAL HISTORY: vomiting COMPARISON: Chest Single View dated 01/18/2021; Chest Single View dated 10/28/2019 FINDINGS: Lines: None. Lungs: Mild increased opacities in lung bases, right greater than left. Pleural: No significant pleural effusions or pneumothorax. Cardiac: The heart size is within normal limits. Mediastinum: Within normal limits. Bones: No acute fractures. Remote bilateral rib fractures. Left shoulder arthroplasty. Other: None IMPRESSION: Mild basilar opacities, right greater than left, could represent mild aspiration pneumon itis in setting of vomiting. No consolidative pneumonia.
--- NOTE | 2023-11-02 16:54 | RAD REPORT ---
EXAM DESCRIPTION: CTChest Abdomen Pelvis W Cont - 11/02/2023 4:28 pm CLINICAL HISTORY: abdominal pain;Cough COMPARISON: No comparisons TECHNIQUE: CT of the chest, abdomen, and pelvis was performed. All CT scans are performed using dose optimization technique as appropriate and may include automated exposure control or mA/KV adjustment according to patient size. FINDINGS: Thorax: Chest Wall: No abnormal mass Lungs: No acute abnormality. Pleura: No effusions or pneumothorax. Angela/Mediastinum: No lymphadenopathy. Aorta/Pulmonary Arteries: Unremarkable Heart: Normal size. Coronary artery calcifications. Abdomen/Pelvis: Liver: No acute abnormality or suspicious lesions. Biliary: Cholecystectomy. Extrahepatic biliary duct dilatation the postcholecystectomy state. Stomach: No significant focal abnormality. Duodenum: No significant focal abnormality. Pancreas: No significant abnormality. Spleen: No significant abnormality. Adrenal: No suspicious lesions. Kidney/ureter: No hydronephrosis. No renal calculi. Retroperitoneum: No retroperitoneal adenopathy. Vascular: No aneurysm. Atherosclerosis . Bowel: Diverticulosis without diverticulitis .. Normal appendix . No bowel obstruction. Peritoneum: No ascites or free air. Bladder: Mild nonspecific bladder wall thickening. Reproductive: No adnexal masses. Bones: No acute fracture. Remote rib fractures. Left shoulder arthroplasty. Other: n/a IMPRESSION: No acute findings within the chest, abdomen, or pelvis.
--- NOTE | 2023-11-02 17:33 | ER ---
Nurse's Notes [facility] Name: Terrence Wilson Age: 58 yrs Sex: Male : 1965 Arrival Date: 11/02/2023 Time: 13:35 Bed 20 Private MD: Diagnosis: Nausea with vomiting, unspecified;Diarrhea, unspecified;Hypertensive heart disease without heart failure;Volume depletion, unspecified;Headache Presentation: 11/01 13:46 Chief complaint: Patient states: here the other day with high blood pressure, still ko1 throwing up pain in lower abdomen, saw pcp yesterday and started on bp meds. Coronavirus screen: At this time, the client does not indicate any symptoms associated with coronavirus-19. Ebola Screen: No symptoms or risks identified at this time. Initial Sepsis Screen: Does the patient meet any 2 criteria? No. Patient's initial sepsis screen is negative. Does the patient have a suspected source of infection? No. Patient's initial sepsis screen is negative. Risk Assessment: Do you want to hurt yourself or someone else? Patient reports no desire to harm self or others. Onset of symptoms is unknown. 13:46 Method Of Arrival: Ambulatory ko1 13:46 Acuity: WENDI 3 ko1 Triage Assessment: 13:50 General: Appears in no apparent distress. Behavior is calm, cooperative, appropriate ko1 for age. Pain: Complains of pain in right lower quadrant and left lower quadrant. GI: Reports lower abdominal pain, nausea, vomiting. Historical: - Allergies: 13:50 No Known Allergies; ko1 - Home Meds: 13:50 Unable to obtain [Active]; ko1 - PMHx: 13:50 Hypertensive disorder; ko1 - PSHx: 13:50 Cholecystectomy; ko1 - Immunization history:: Adult Immunizations up to date. - Infectious Disease History:: Denies. - Social history:: Smoking status: Patient denies any tobacco usage or history of. Screenin:44 [facility] ED Fall Risk Assessment (Adult) History of falling in the last 3 months, bp including since admission No falls in past 3 months (0 pts) Confusion or Disorientation No (0 pts) Intoxicated or Sedated No (0 pts) Impaired Gait No (0 pts) Mobility Assist Device Used No (0 pt) Altered Elimination No (0 pt) Score/Fall Risk Level 0 - 2 = Low Risk. Abuse screen: Denies threats or abuse. Denies injuries from another. Nutritional screening: No deficits noted. Tuberculosis screening: No symptoms or risk factors identified. Assessment: 14:00 General: Appears in no apparent distress. Behavior is calm, cooperative, appropriate bp for age. Pain: Complains of pain in abdomen. GI: Abdomen is non-distended. 15:30 Reassessment: Patient appears in no apparent distress at this time. Patient is alert, bp oriented x 3, equal unlabored respirations, skin warm/dry/pink. 17:22 Reassessment: Patient appears in no apparent distress at this time. Patient is alert, bp oriented x 3, equal unlabored respirations, skin warm/dry/pink. Vital Signs: 13:46 BP 185 / 100 RA Sitting (auto/reg); Pulse 62; Resp 18; Temp 97.8; Pulse Ox 98% on R/A; ko1 15:30 BP 165 / 87; Pulse 75; Resp 16; Pulse Ox 99% ; bp 17:21 BP 166 / 86; Pulse 67; Resp 16; Pulse Ox 99% ; bp ED Course: 13:36 Patient arrived in ED. ts1 13:39 Duran Gamez PA is PHCP. cp 13:39 Duran Moe MD is Attending Physician. cp 13:50 Triage completed. ko1 13:50 Arm band placed on right wrist. Patient placed in an exam room, on a stretcher, on ko1 manager monitoring, on pulse oximetry, Patient notified of wait time. 13:54 Jay Cannon, RN is Primary Nurse. bp 14:44 Patient has correct armband on for positive identification. bp 14:48 Missed attempt(s): 22 gauge in right forearm. Bleeding controlled, band aid applied, ll1 catheter tip intact. 15:00 Accessed ,peripheral vein via ultrasound, utilizing static ultrasound technique Blood cm10 collected. Clean \T\ dry. Dressing intact. Good blood return. Flushes easily. 20G right forearm. 15:21 Initial lab(s) drawn, by me, sent to lab. EKG done, by ED staff, reviewed by Duran VIERA. 15:30 XRAY Chest (1 view) In Process Unspecified. EDMS 16:30 CT Chest, Abdomen, Pelvis - W/Contrast In Process Unspecified. EDMS 18:16 No provider procedures requiring assistance completed. IV discontinued, intact, bp bleeding controlled, No redness/swelling at site. Pressure dressing applied. Administered Medications: 15:08 Drug: Ondansetron IVP 4 mg IVP once; over 2 minutes Route: IVP; Site: right forearm; bp 18:15 Follow up: Response: No adverse reaction bp 15:08 Drug: metoCLOPramide IVP 10 mg IVP once; over 1 to 2 minutes Route: IVP; Site: right bp forearm; 18:15 Follow up: Response: No adverse reaction bp 15:08 Drug: Famotidine IVP 20 mg IVP once; dilute with 10 mL 0.9% NaCl; give over 2 minutes bp Route: IVP; Site: right forearm; 18:16 Follow up: Response: No adverse reaction bp 15:08 Drug: NS 0.9% IV 1000 ml IV at 999 ml/hr Per protocol Route: IV; Rate: 999 ml/hr; Site: bp right forearm; 18:16 Follow up: IV Status: Completed infusion; IV Intake: 1000ml bp Intake: 18:16 IV: 1000ml; Total: 1000ml. bp Outcome: 17:33 Discharge ordered by . cp 18:16 Discharged to home ambulatory, bp 18:16 Condition: stable 18:16 Discharge instructions given to patient, Instructed on discharge instructions, follow up and referral plans. Demonstrated understanding of instructions, follow-up care, 18:16 Patient left the ED. bp Signatures: Dispatcher [employer] EDMS Duran Gamez PA PA cp Peltier, Brian RN MICHELET bp David Guerrero RN RN ll1 Candace Forbes RN RN [email or web address] Shirley Yates PAS PAS ts1 Allyssa Simpson RN RN [id number]
--- NOTE | 2023-11-02 17:33 | EDPHYS ---
Physician Documentation [facility] Name: Terrence Wilson Age: 58 yrs Sex: Male : 1965 Arrival Date: 11/02/2023 Time: 13:35 Bed 20 Private MD: ED Physician Duran Moe HPI: 11/01 14:07 This 58 yrs old Male presents to ER via Ambulatory with complaints of General Weakness, cp Nausea/Vomiting. 14:07 The patient presents to the emergency department with nausea, that is moderate, cp vomiting, that is intermittent, described as bilious, abdominal pain. 14:07 Onset: The symptoms/episode began/occurred 3 day(s) ago. Possible causes: unknown. cp Associated signs and symptoms: Pertinent positives: anorexia, diarrhea, elevated blood pressure, headache, Pertinent negatives: constipation, fever, GI bleeding. Severity of symptoms: in the emergency department the symptoms are unchanged despite home interventions. Historical: - Allergies: 13:50 No Known Allergies; ko1 - Home Meds: 13:50 Unable to obtain [Active]; ko1 - PMHx: 13:50 Hypertensive disorder; ko1 - PSHx: 13:50 Cholecystectomy; ko1 - Immunization history:: Adult Immunizations up to date. - Infectious Disease History:: Denies. - Social history:: Smoking status: Patient denies any tobacco usage or history of. ROS: 14:10 Constitutional: Positive for poor PO intake, Negative for fever, cp 14:10 Cardiovascular: Negative for chest pain, edema, palpitations, cp 14:10 Respiratory: Negative for cough, shortness of breath, wheezing, cp 14:10 Abdomen/GI: Positive for abdominal pain, nausea and vomiting, diarrhea, anorexia, Negative for constipation, hematemesis, black/tarry stool, rectal bleeding, 14:10 Back: Negative for radiated pain, 14:10 Neuro: Positive for headache, Negative for altered mental status, dizziness, weakness, 14:10 All other systems are negative, Exam: 14:15 Constitutional: The patient appears in no acute distress, alert, awake, cp non-diaphoretic, non-toxic, well developed, well nourished, uncomfortable, 14:15 Head/Face: Normocephalic, atraumatic. cp 14:15 Eyes: Periorbital structures: appear normal, Conjunctiva: normal, no exudate, no injection, Sclera: no appreciated abnormality, Lids and lashes: appear normal, bilaterally, 14:15 ENT: External ear(s): are unremarkable, Nose: is normal, Mouth: Lips: moist, Oral mucosa: pink and intact, moist, Posterior pharynx: is normal, airway is patent, no erythema, no exudate, 14:15 Chest/axilla: Inspection: normal, 14:15 Cardiovascular: Rate: normal, Rhythm: regular, 14:15 Respiratory: the patient does not display signs of respiratory distress, Respirations: normal, no use of accessory muscles, no retractions, labored breathing, is not present, Breath sounds: are clear throughout, no decreased breath sounds, no stridor, no wheezing, 14:15 Abdomen/GI: Inspection: abdomen appears normal, Bowel sounds: active, all quadrants, Palpation: soft, in all quadrants, moderate abdominal tenderness, in all quadrants, rebound tenderness, is not appreciated, involuntary guarding, is not appreciated, 14:15 Back: pain, is absent, 14:15 Neuro: Orientation: to person, place \T\ time. Mentation: is normal, Motor: moves all fours, strength is normal, Sensation: is normal, 15:23 ECG was reviewed by the Attending Physician. Vital Signs: 13:46 BP 185 / 100 RA Sitting (auto/reg); Pulse 62; Resp 18; Temp 97.8; Pulse Ox 98% on R/A; ko1 15:30 BP 165 / 87; Pulse 75; Resp 16; Pulse Ox 99% ; bp 17:21 BP 166 / 86; Pulse 67; Resp 16; Pulse Ox 99% ; bp MDM: 13:54 Patient medically screened. cp 17:32 Data reviewed: vital signs, nurses notes, lab test result(s), EKG, radiologic studies, cp CT scan, plain films. 17:32 Differential diagnosis: gastritis, pancreatitis, diverticulitis, viral gastroenteritis, cp gastroenteritis. I considered the following discharge prescriptions or medication management in the emergency department Medications were administered in the Emergency Department. See MAR. Independent interpretation of the following test(s) in the Emergency Department EKG: See my EKG interpretation above. Care significantly affected by the following chronic conditions: Hypertension. Counseling: I had a detailed discussion with the patient and/or guardian regarding the historical points, exam findings, and any diagnostic results supporting the discharge/admit diagnosis, lab results, radiology results, to return to the emergency department if symptoms worsen or persist or if there are any questions or concerns that arise at home. Response to treatment: the patient's symptoms have markedly improved after treatment, and as a result, I will discharge patient. Special discussion: Based on the patient's Hx, exam, and Dx evaluation, there is no indication for emergent surgery or inpatient Tx. It is understood by the patient/guardian that if the Sx's persist or worsen they need to return immediately for re-evaluation. 11/01 14:06 Order name: Basic Metabolic Panel; Complete Time: 16:08 cp 11/01 17:16 Interpretation: Normal except: CL 108; BUN 20; GFR 88. cp 11/01 14:06 Order name: CBC with Diff; Complete Time: 16:08 cp 11/01 14:06 Order name: LFT's; Complete Time: 16:08 cp 11/01 14:06 Order name: Magnesium; Complete Time: 16:08 cp 11/01 14:06 Order name: PT-INR; Complete Time: 16:08 cp 11/01 14:06 Order name: Troponin HS; Complete Time: 16:08 cp 11/01 14:06 Order name: Lipase; Complete Time: 16:08 cp 11/01 14:06 Order name: Urinalysis w/ reflexes; Complete Time: 16:08 cp 11/01 14:06 Order name: XRAY Chest (1 view); Complete Time: 16:08 cp 11/01 16:09 Order name: CT Chest, Abdomen, Pelvis - W/Contrast; Complete Time: 17:16 cp 11/01 14:06 Order name: EKG; Complete Time: 14:06 cp 11/01 14:06 Order name: Cardiac monitoring; Complete Time: 14:43 cp 11/01 14:06 Order name: EKG - Nurse/Tech; Complete Time: 15:21 cp 11/01 14:06 Order name: IV Saline Lock; Complete Time: 15:21 cp 11/01 14:06 Order name: Labs collected and sent; Complete Time: 14:43 cp 11/01 14:06 Order name: O2 Per Protocol; Complete Time: 14:43 cp 11/01 14:06 Order name: O2 Sat Monitoring; Complete Time: 14:43 cp 11/01 17:15 Order name: Vital Signs; Complete Time: 17:24 cp 11/01 17:17 Order name: PO challenge; Complete Time: 17:24 cp EC:23 Rate is 65 beats/min. Rhythm is regular. IL interval is normal. QRS interval is normal. cp QT interval is normal. T waves are Inverted in leads III, aVR. Interpreted by me. Reviewed by me. Administered Medications: 15:08 Drug: Ondansetron IVP 4 mg IVP once; over 2 minutes Route: IVP; Site: right forearm; bp 18:15 Follow up: Response: No adverse reaction bp 15:08 Drug: metoCLOPramide IVP 10 mg IVP once; over 1 to 2 minutes Route: IVP; Site: right bp forearm; 18:15 Follow up: Response: No adverse reaction bp 15:08 Drug: Famotidine IVP 20 mg IVP once; dilute with 10 mL 0.9% NaCl; give over 2 minutes bp Route: IVP; Site: right forearm; 18:16 Follow up: Response: No adverse reaction bp 15:08 Drug: NS 0.9% IV 1000 ml IV at 999 ml/hr Per protocol Route: IV; Rate: 999 ml/hr; Site: bp right forearm; 18:16 Follow up: IV Status: Completed infusion; IV Intake: 1000ml bp Disposition Summary: 11/02/23 17:33 Discharge Ordered Notes: Location: Home cp Problem: new cp Symptoms: have improved cp Condition: Stable cp Diagnosis - Nausea with vomiting, unspecified cp - Diarrhea, unspecified cp - Hypertensive heart disease without heart failure cp - Volume depletion, unspecified cp - Headache cp Followup: cp - With: Private Physician - When: 2 - 3 days - Reason: Recheck today's complaints Discharge Instructions: - Discharge Summary Sheet cp - Food Choices to Help Relieve Diarrhea, Adult cp - Diarrhea, Adult cp - General Headache Without Cause cp - Nausea and Vomiting, Adult cp - Aspirin and Your Heart cp - How to Take Your Blood Pressure cp Forms: - Medication Reconciliation Form cp - Antibiotic Education cp - Prescription Opioid Use cp - Patient Portal Instructions cp - Leadership Thank You Letter cp Addendum: 11/04/2023 07:47 Co-signature as Attending Physician, Duran Moe MD I agree with the assessment and c chiang plan of care. Signatures: Dispatcher [employer] EDMS Duran Moe MD MD cha Page, Corey, PA PA cp Jay Cannon, RN RN bp Candace Forbes, RN RN ko1 Corrections: (The following items were deleted from the chart) 11/01 14:06 14:06 BASIC METABOLIC PANEL+C.LAB.BRZ ordered. EDMS EDMS 14:06 14:06 CBC+H.LAB.BRZ ordered. EDMS EDMS 14:06 14:06 HEPATIC FUNCTION+C.LAB.BRZ ordered. EDMS EDMS 14:06 14:06 MAGNESIUM+C.LAB.BRZ ordered. EDMS EDMS 14:06 14:06 PROTIME (+INR)+COAG.LAB.BRZ ordered. EDMS EDMS 14:06 14:06 Troponin High Sensitivity+C.LAB.BRZ ordered. EDMS EDMS 14:06 14:06 LIPASE+C.LAB.BRZ ordered. EDMS EDMS 14:06 14:06 Urinalysis+U.LAB.BRZ ordered. EDMS EDMS 11/02 17:49 11/01 14:07 Associated signs and symptoms: Pertinent positives: anorexia, elevated cp blood pressure, Pertinent negatives: diarrhea, fever, GI bleeding, cp 11/02 17:49 11/01 14:10 Abdomen/GI: Positive for abdominal pain, nausea and vomiting, anorexia, cp Negative for diarrhea, constipation, hematemesis, cp 11/02 17:53 11/01 14:07 Associated signs and symptoms: Pertinent positives: anorexia, diarrhea, cp elevated blood pressure, Pertinent negatives: constipation, fever, GI bleeding, cp 11/02 17:53 11/01 14:10 Neuro: Negative for altered mental status, dizziness, headache, weakness, cpcp
[2023-11-02 18:24] VITALS: BP 166/86; TEMP 97.8; O2SAT 99
--- NOTE | 2023-11-03 11:13 | EKG ---
Test Date: 2023-11-02 Test Time: 15:18:32 General Partner: BP MEASUREMENT RESULTS: Intervals: Rate: 65 HI: 128 QRSD: 100 QT: 410 QTc: 426 [place]: P: 33 HI: 128 QRS: 41 T: 12 INTERPRETIVE STATEMENTS: Normal sinus rhythm Normal ECG Compared to ECG 10/28/2019 15:13:07 Sinus bradycardia no longer present Electronically Signed On 11-03-23 11:11:54 CDT by David Riley
== END 2023-11-02 18:16 | disposition home or self-care (01) ==
LOC: ER 13:35
DX: R11.2 Nausea with vomiting, unspecified (principal); E86.9 Volume depletion, unspecified; I11.9 Hypertensive heart disease without heart failure; R19.7 Diarrhea, unspecified; R51.9 Headache, unspecified
CPT/HCPCS: 96361; 93005; 85025; 80048; 36415; 83735; 85610; 80076; 81003; 84484; 83690; 71260; 74177; 71045; 96375; 96374; 99285; Q9967; J2765; J2405; J7030